=== PATIENT | male | born 1955 | race Caucasian/White ===

== ENCOUNTER 2017-02-27 10:15 | Inpatient (IN) ==
--- NOTE | 2017-02-27 12:53 | Internal Med History&Physical ---
Date of Encounter: 02/27/17 Time of Encounter: 12:31 Assessment and Plan (1) COPD exacerbation Current visit: Yes Status: Acute 61/male Known to have a COPD. Was evaluated by [facility] emergency for COPD exacerbation. Was transferred here for further follow-up. Plan: -Admitted as an inpatient: Intravenous antibiotics/intravenous steroids and close observation. -Intravenous ceftriaxone/intravenous azithromycin after blood culture. -Intravenous methylprednisolone 40 mg every 8 hourly. -Inhale bronchodilators every 4 hourly. Close observation. (2) CHF (congestive heart failure) Current visit: No Status: Acute Stress test: 01/10/2015: Gaited EF 54%. Negative for ischemia. Patient responded well to intravenous Lasix in the [facility] emergency room. We will get echocardiogram done tomorrow. We will also run the troponins. Qualifiers: Congestive heart failure type: unspecified congestive heart failure type Congestive heart failure chronicity: unspecified congestive heart failure chronicity Qualified Code(s): I50.9 - Heart failure, unspecified (3) Chest pain Current visit: Yes Status: Acute Patient has a atypical chest pain. We will and troponin. We will get echocardiogram. If troponin positive/abnormal echocardiogram: We will get cardiology on the board. Plan discussed with the patient and he is aware of the same. Qualifiers: Chest pain type: unspecified Qualified Code(s): R07.9 - Chest pain, unspecified (4) Hypertension Current visit: Yes Status: Acute Blood pressure is within normal limits. We will continue home medications. Qualifiers: Hypertension type: unspecified Qualified Code(s): I10 - Essential (primary ) hypertension (5) DVT prophylaxis Current visit: Yes Status: Acute Heparin Medical decision making: This patient has a moderate to severe risk of worsening in spite of being on appropriate antibiotics due to the underlying multiple complex comorbid conditions Internal Medicine - H&P: HPI Chief complaint: Chest pressure Admitted From: Intrahospital Transfer Plans for Post Hospital Care: Home History of present illness: PCP: Jamaica Schumacher Brief past medical history: COPD, CHF, hypertension, dyslipidemia, coronary artery disease, status post coronary artery bypass graft in 2007 History of present illness: This is a transfer patient from [facility] to [facility]. Patient was evaluated in the [facility] emergency room. This is a 61-year-old male who is known to have a COPD has a four-day history of a cough and difficulty in breathing. Patient complains that his shortness of breath was getting progressively worse and now he started having left-sided precordial chest pain which was nonradiating and localized and worsening with movement and relieved by rest. Patient denies any history of recent sickness. Squad was called by the family. There is squad placed patient on a BiPAP. Patient was transferred to [facility]. He was given intravenous steroids. Patient also received 40 mg Lasix. Patient felt much better after this initial treatment. [facility] ask for a transfer of this patient to the hospital for further management. Reason for admission: Likely COPD exacerbation for further management and will rule out ACS Family history: Noncontributory Past Med Surg Social Fam HX - Past Medical History Medical history: asthma, COPD, hypertension Psychiatric history: no psych history - Social History Smoking Status: Current some day smoker Smokeless Tobacco Status: No Alcohol use: none Drug use: none Internal Medicine - H&P: Meds Albuterol Sulfate [Ventolin Hfa] 18 gm IH PRN PRN 02/27/17 [History] Carvedilol [Coreg] 6.25 mg PO BIDWM 02/27/17 [History] Fluticasone/Salmeterol [Advair 500-50 Diskus] 1 each IH DAILY 02/27/17 [History] Tiotropium [Spiriva] 18 mcg IH 0700 02/27/17 [History] predniSONE [PredniSONE] 20 mg PO DAILY 02/27/17 [History] 3 Allergy/AdvReac Type Severity Reaction Status Date / Time No Known Allergies Allergy Unverified 01/10/15 08:36 All Systems PM: A 10-system review of systems was performed and is negative for pertinent findings except as documented above in the HPI. - Constitutional Constitutional: no chills, no fever(s), no night sweats - EENT Eyes: no change in vision, no discharge, no pain, no photophobia Ears: no ear discharge, no ear pain, no tinnitus Nose, mouth and throat: no dysphagia, no nasal discharge, no neck pain, no sore throat - Cardiovascular Cardiovascular ROS IM: chest pain, diaphoresis, dyspnea, lightheadedness, no palpitations, no syncope - Respiratory Respiratory: no cough, no dyspnea, no wheezing, no excessive phlegm production - Gastrointestinal Gastrointestinal: no abdominal pain, no diarrhea, no hematemesis, no hematochezia, no melena, no nausea, no vomiting - Musculoskeletal Musculoskeletal ROS IM: no numbness, no tingling - Integumentary Integumentary IM: no rash, no unusual bruising - Neurological Neurological ROS: no confusion, no convulsions, no focal weakness, no numbness, no tingling, no tremor(s) - Hematologic/Lymphatic Hematologic/Lymphatic: no easy bruising - Constitutional Vitals: Temp Pulse Resp BP Pulse Ox 97.4 F L 90 17 129/82 91 02/27/17 11:48 02/27/17 11:48 02/27/17 11:48 02/27/17 11:48 02/27/17 11:48 General appearance: Present: A&O X 3, pleasant, no acute distress, answers questions appropriately - Head Head exam: Present: atraumatic, normocephalic - Eye Eye exam: Present: PERRL, conjuntiva pink, sclera anicteric Pupils: Present: PERRL - Neck Neck exam general surgery: Present: supple, trachea midline. Absent: lymphadenopathy - Respiratory Respiratory exam: Present: CTAB. Absent: accessory muscle use, rales, rhonchi, wheezes - Cardiovascular Cardiovascular exam: Present: RRR, +S1, +S2. Absent: diastolic murmur, gallop, rubs, systolic murmur - GI/Abdominal GI/Abdominal exam: Present: normal bowel sounds, soft, no peritoneal signs. Absent: distended, tenderness - Extremities Exam Extremities exam: Present: warm, radial pulses palpable and symmetrical. Absent : calf tenderness, cyanotic, pedal edema - Neurological Exam Neurological exam: Present: CN II-XII intact, oriented X3, no focal deficits. Absent: pronater drift, facial droop, speech deficit - Skin Skin exam: Present: dry, intact
[2017-02-27] MEDS ORDERED: Naloxone 0.4 MG/ML INJ IVP PRN (12:54)
[2017-02-27] MEDS ORDERED: Mag Hydrox/Al Hydrox/Simeth 30 ML UDC PO PRN (12:54)
[2017-02-27] MEDS ORDERED: Acetaminophen 325 MG TABLET PO PRN (12:54)
[2017-02-27] MEDS ORDERED: Ipratropium/Albuterol Neb 3 ML IH PRN (12:59)
[2017-02-27] MEDS: *HR* Heparin 5,000 UNIT/ML VIAL SQ SCH (16:11)
[2017-02-27] MEDS: MethylPREDNISolone 40 MG/ML VIAL IVP SCH ×2 (16:11→23:23)
[2017-02-27] MEDS: Azithromycin 500 MG in D5% in Water 250 ML IVPB SCH (16:11)
[2017-02-28 01:25] LABS: Hematocrit 36.6 % (37.5-50.1); Hemoglobin 12.4 g/dL (12.9-16.9); Immature Granulocytes % 0.4 % (0-4); Lymphocytes # 0.7 K/mcL (0.6-4.6); Lymphocytes % 5.2 %; Mean Corpuscular HGB Conc 33.9 g/dL (31.6-35.5); Mean Corpuscular Hemoglobin 31.7 pg (28.0-33.3); Mean Corpuscular Volume 93.6 fL (83.0-100.0); Mean Platelet Volume 8.5 fL (9.4-12.4); Monocytes # 0.2 K/mcL (0.0-1.3); Monocytes % 1.5 %; Neutrophils # 13.2 K/mcL (1.6-8.9); Platelet Count 263 K/mcL (140-400); Red Blood Count 3.91 M/mcL (4.19-5.50); Red Cell Distribution Width 13.4 % (11.5-14.5); Segmented Neutrophils % 92.9 %
[2017-02-28 01:37] LABS: INR 1.2; Prothrombin Time 12.9 Seconds (9.4-12.1)
[2017-02-28 01:38] LABS: Alanine Aminotransferase 42 Units/L (0-55); Albumin 2.8 g/dL (3.5-5.0); Alkaline Phosphatase 64 Units/L (38-126); Aspartate Amino Transferase 20 Units/L (5-34); BUN/Creatinine Ratio 36 (6-26); Bilirubin,Total 0.9 mg/dL (0.2-1.2); Blood Urea Nitrogen 30 mg/dL (8-26); Calcium 8.5 mg/dL (8.6-10.8); Carbon Dioxide 31 mEq/L (19-29); Chloride 101 mEq/L (98-109); Chol/HDL Ratio 1.2 (0-4.9); Globulin 2.9 g/dL (2.4-3.5); Glucose 150 mg/dL (70-99); HDL Cholesterol 45 mg/dL (40-59); LDL Cholesterol,Calculated 4 mg/dL (0-99); Magnesium 1.7 mg/dL (1.6-2.6); Osmolality,Calculated 297 (280-300); Phosphorous 2.9 mg/dL (2.3-4.7); Potassium 4.3 mEq/L (3.5-4.5); Sodium 139 mEq/L (136-145); Total Protein 5.7 g/dL (6.0-8.3); Triglycerides 30 mg/dL (< 150); eGFR For African Americans > 60 (> 60); eGFR For Non-African Americans > 60 (> 60)
[2017-02-28 01:40] LABS: Cholesterol 55 mg/dL (< 200)
[2017-02-28] MEDS: *HR* Heparin 5,000 UNIT/ML VIAL SQ SCH ×2 (05:26→16:16)
[2017-02-28] MEDS: MethylPREDNISolone 40 MG/ML VIAL IVP SCH ×2 (07:59→15:20)
[2017-02-28] MEDS: cefTRIAXone 1,000 MG in Water for inj. (sterile) 10 ML IVP SCH (07:59)
[2017-02-28] MEDS: Tiotropium 18 MCG inhalation IH SCH (08:08)
[2017-02-28] MEDS: Azithromycin 500 MG in D5% in Water 250 ML IVPB SCH (15:20)
[2017-02-28] MEDS ORDERED: Albuterol 2.5 MG/3 ML NEBULIZER IH PRN (16:19)
--- NOTE | 2017-02-28 16:22 | Internal Med Progress Note ---
Date of Encounter: 02/28/17 Time of Encounter: 16:21 - Assessment and plan (1) CHF (congestive heart failure) Current Visit: Yes Status: Acute Qualifiers: Congestive heart failure type: unspecified congestive heart failure type Congestive heart failure chronicity: unspecified congestive heart failure chronicity Qualified Code(s): I50.9 - Heart failure, unspecified (2) COPD exacerbation Current Visit: Yes Status: Acute (3) Chest pain Current Visit: Yes Status: Acute Qualifiers: Chest pain type: unspecified Qualified Code(s): R07.9 - Chest pain, unspecified (4) Hypertension Current Visit: Yes Status: Acute Qualifiers: Hypertension type: unspecified Qualified Code(s): I10 - Essential (primary ) hypertension - Subjective Interval history: Admitted for CHF. Chest x-ray showed pulmonary infiltrates and BNP elevated. IV Lasix 40 twice a day started. Troponin negative. Echocardiogram ordered. Also noted to have COPD exacerbation and therefore patient is on steroids med nebs and Mucinex. Patient is also on IV Rocephin and Zithromax the chest x-ray did not show any pneumonia. CBC CMP and magnesium ordered. As noted above cortical lens are negative. - Constitutional Vitals: Temp Pulse Resp BP Pulse Ox 98.0 F 101 18 132/80 98 02/28/17 15:56 02/28/17 15:56 02/28/17 15:56 02/28/17 15:56 02/28/17 15:56 General appearance: Present: A&O X 3, pleasant, no acute distress, answers questions appropriately - Head Head exam: Present: atraumatic, normocephalic - Eye Eye exam: Present: PERRL, conjuntiva pink, sclera anicteric Pupils: Present: PERRL - Neck Neck exam general surgery: Present: supple, trachea midline. Absent: lymphadenopathy - Respiratory Respiratory exam: Present: CTAB, rhonchi, wheezes. Absent: accessory muscle use , rales - Cardiovascular Cardiovascular exam: Present: RRR, +S1, +S2. Absent: diastolic murmur, gallop, rubs, systolic murmur - GI/Abdominal GI/Abdominal exam: Present: normal bowel sounds, soft, no peritoneal signs. Absent: distended, tenderness - Extremities Exam Extremities exam: Present: warm, radial pulses palpable and symmetrical. Absent : calf tenderness, cyanotic, pedal edema - Neurological Exam Neurological exam: Present: CN II-XII intact, oriented X3, no focal deficits. Absent: pronater drift, facial droop, speech deficit - Skin Skin exam: Present: dry, intact Internal Medicine: Result - Labs CBC & Chem 7: 02/28/17 01:18 02/28/17 01:18 Labs: Short CBC 02/28/17 Range/Units 01:18 WBC 14.2 H (4.3-11.1) K/mcL Hgb 12.4 L (12.9-16.9) g/dL Hct 36.6 L (37.5-50.1) % Plt Count 263 (140-400) K/mcL Neutrophils # 13.2 H (1.6-8.9) K/mcL BMP 02/28/17 01:18 Sodium 139 Potassium 4.3 Chloride 101 Carbon Dioxide 31 H BUN 30 H Creatinine 0.84 Glucose 150 H Calcium 8.5 L Cardiac Enzymes 02/27/17 02/28/17 Range/Units 19:26 01:18 Troponin I 0.02 0.01 (0-0.03) ng/mL Liver Function 02/28/17 Range/Units 01:18 Total Bilirubin 0.9 (0.2-1.2) mg/dL AST 20 (5-34) Units/L ALT 42 (0-55) Units/L Alkaline Phosphatase 64 (38-126) Units/L Albumin 2.8 L (3.5-5.0) g/dL - ABG Interpretation ABG results: PT/INR, D-dimer PT 12.9 Seconds (9.4-12.1) H 02/28/17 01:18 Consult Discharge Plan - Plan Referrals: Paul Watts, [facility] [Primary Care Provider] -
[2017-02-28] MEDS: Furosemide 40 MG/4 ML VIAL IVP SCH (17:23)
[2017-02-28] MEDS: Ipratropium/Albuterol Neb 3 ML IH SCH ×2 (19:57→22:32)
[2017-02-28] MEDS: methylPREDNISolone 125 MG/2 ML VIAL IVP SCH (23:47)
[2017-03-01 03:03] LABS: Basophils % 0.1 %; Hemoglobin 12.8 g/dL (12.9-16.9); Immature Granulocytes % 0.8 % (0-4); Lymphocytes # 0.9 K/mcL (0.6-4.6); Mean Corpuscular HGB Conc 32.8 g/dL (31.6-35.5); Mean Corpuscular Hemoglobin 31.3 pg (28.0-33.3); Mean Corpuscular Volume 95.4 fL (83.0-100.0); Mean Platelet Volume 8.8 fL (9.4-12.4); Monocytes # 0.5 K/mcL (0.0-1.3); Monocytes % 2.7 %; Neutrophils # 16.7 K/mcL (1.6-8.9); Platelet Count 275 K/mcL (140-400); Red Blood Count 4.09 M/mcL (4.19-5.50); Red Cell Distribution Width 14.1 % (11.5-14.5); Segmented Neutrophils % 91.4 %
[2017-03-01 03:22] LABS: Alanine Aminotransferase 57 Units/L (0-55); Albumin 2.8 g/dL (3.5-5.0); Albumin/Globulin Ratio 0.9 (1.1-2.2); Alkaline Phosphatase 82 Units/L (38-126); Aspartate Amino Transferase 30 Units/L (5-34); BUN/Creatinine Ratio 40 (6-26); Bilirubin,Total 0.2 mg/dL (0.2-1.2); Blood Urea Nitrogen 38 mg/dL (8-26); Calcium 8.8 mg/dL (8.6-10.8); Carbon Dioxide 30 mEq/L (19-29); Chloride 103 mEq/L (98-109); Globulin 3.1 g/dL (2.4-3.5); Glucose 152 mg/dL (70-99); Magnesium 1.9 mg/dL (1.6-2.6); Osmolality,Calculated 304 (280-300); Potassium 4.4 mEq/L (3.5-4.5); Sodium 141 mEq/L (136-145); Total Protein 5.9 g/dL (6.0-8.3); eGFR For African Americans > 60 (> 60); eGFR For Non-African Americans > 60 (> 60)
[2017-03-01] MEDS: Ipratropium/Albuterol Neb 3 ML IH SCH ×4 (05:02→22:16)
[2017-03-01] MEDS: *HR* Heparin 5,000 UNIT/ML VIAL SQ SCH ×2 (05:17→17:22)
[2017-03-01] MEDS: methylPREDNISolone 125 MG/2 ML VIAL IVP SCH (08:48)
[2017-03-01] MEDS: cefTRIAXone 1,000 MG in Water for inj. (sterile) 10 ML IVP SCH (08:48)
[2017-03-01] MEDS: Furosemide 40 MG/4 ML VIAL IVP SCH ×2 (08:48→17:23)
[2017-03-01] MEDS: Tiotropium 18 MCG inhalation IH SCH (10:50)
--- NOTE | 2017-03-01 11:26 | Internal Med Progress Note ---
Date of Encounter: 03/01/17 Time of Encounter: 11:21 - Assessment and plan (1) CHF (congestive heart failure) Current Visit: Yes Status: Acute Qualifiers: Congestive heart failure type: unspecified congestive heart failure type Congestive heart failure chronicity: unspecified congestive heart failure chronicity Qualified Code(s): I50.9 - Heart failure, unspecified (2) COPD exacerbation Current Visit: Yes Status: Acute (3) Chest pain Current Visit: Yes Status: Acute Qualifiers: Chest pain type: unspecified Qualified Code(s): R07.9 - Chest pain, unspecified (4) Hypertension Current Visit: Yes Status: Acute Qualifiers: Hypertension type: unspecified Qualified Code(s): I10 - Essential (primary ) hypertension - Subjective Interval history: Admitted for CHF. Chest x-ray showed pulmonary infiltrates and BNP elevated. IV Lasix 40 twice a day started. Troponin negative. Echocardiogram ordered. Also noted to have COPD exacerbation and therefore patient is on steroids med nebs and Mucinex. Patient is also on IV Rocephin and Zithromax the chest x-ray did not show any pneumonia. CBC CMP and magnesium ordered. As noted above cortical lens are negative. 03/01 patient is asymptomatic now. He came in with chest pain CHF and COPD exacerbation. Breathing is improved with IV Solu-Medrol and nebulizer and I will switch him to oral steroids per his request. His echocardiogram showed an ejection fraction of only 20-25%. In 2014 he had a negative stress test and his EF at that time was 54%. We have consulted cardiology. We will make sure he is on beta kelsey and aspirin and ALMA inhibitor. Further evaluation and treatment plan per cardiology - Constitutional Vitals: Temp Pulse Resp BP Pulse Ox 97.8 F 80 16 140/88 96 03/01/17 11:05 03/01/17 11:05 03/01/17 11:05 03/01/17 11:05 03/01/17 11:05 General appearance: Present: A&O X 3, pleasant, no acute distress, answers questions appropriately - Head Head exam: Present: atraumatic, normocephalic - Eye Eye exam: Present: PERRL, conjuntiva pink, sclera anicteric Pupils: Present: PERRL - Neck Neck exam general surgery: Present: supple, trachea midline. Absent: lymphadenopathy - Respiratory Respiratory exam: Present: CTAB. Absent: accessory muscle use, rales, rhonchi, wheezes - Cardiovascular Cardiovascular exam: Present: RRR, +S1, +S2. Absent: diastolic murmur, gallop, rubs, systolic murmur - GI/Abdominal GI/Abdominal exam: Present: normal bowel sounds, soft, no peritoneal signs. Absent: distended, tenderness - Extremities Exam Extremities exam: Present: warm, radial pulses palpable and symmetrical. Absent : calf tenderness, cyanotic, pedal edema - Neurological Exam Neurological exam: Present: CN II-XII intact, oriented X3, no focal deficits. Absent: pronater drift, facial droop, speech deficit - Skin Skin exam: Present: dry, intact Internal Medicine: Result - Labs CBC & Chem 7: 03/01/17 02:37 03/01/17 02:37 Labs: Short CBC 03/01/17 Range/Units 02:37 WBC 18.3 H (4.3-11.1) K/mcL Hgb 12.8 L (12.9-16.9) g/dL Hct 39.0 (37.5-50.1) % Plt Count 275 (140-400) K/mcL Neutrophils # 16.7 H (1.6-8.9) K/mcL BMP 03/01/17 02:37 Sodium 141 Potassium 4.4 Chloride 103 Carbon Dioxide 30 H BUN 38 H Creatinine 0.94 Glucose 152 H Calcium 8.8 Liver Function 03/01/17 Range/Units 02:37 Total Bilirubin 0.2 (0.2-1.2) mg/dL AST 30 (5-34) Units/L ALT 57 H (0-55) Units/L Alkaline Phosphatase 82 (38-126) Units/L Albumin 2.8 L (3.5-5.0) g/dL - ABG Interpretation ABG results: PT/INR, D-dimer PT 12.9 Seconds (9.4-12.1) H 02/28/17 01:18 - Impressions Impressions Echocardiogram 02/27/17 12:59 Impressions: LVEF 20-25%. Severely dilated left ventricle. Severe global left ventricular systolic dysfunction. Indeterminate diastolic function. Atypical septal motion consistent with post-operative status/bundle branch block. Mildly dilated right ventricle. Mild right ventricular hypokinesis. Moderately dilated left atrium. Moderately dilated right atrium. Mild-moderate mitral regurgitation. Left Ventricular Wall Motion: Rest Echo Findings The apex, apical inferior, mid inferior, basal inferior, apical anterior, mid anterior, basal anterior, apical septal, mid inferior septal, basal inferior septal, apical lateral, mid anterior lateral, basal anterior lateral, mid anterior septal, mid inferior lateral, basal anterior septal and basal inferior lateral desai were hypokinetic. Findings: Study Quality * Technically adequate exam. ECG Findings * Sinus rhythm with BBB. Left Ventricle * LVEF 20-25%. * Severely dilated left ventricle. * Severe global left ventricular systolic dysfunction. * Indeterminate diastolic function. * Atypical septal motion consistent with post-operative status/bundle branch block. Right Ventricle * Mildly dilated right ventricle. * Mild right ventricular hypokinesis. Left Atrium * Moderately dilated left atrium. Right Atrium * Moderately dilated right atrium. Interatrial Septum * No evidence of PFO by color Doppler. Aortic Valve * Trileaflet aortic valve with normal function. * No aortic regurgitation. * No aortic stenosis. Mitral Valve * Mitral valve leaflets normal in appearance, but apically displaced. * Mild-moderate mitral regurgitation. * No mitral stenosis. Tricuspid Valve * Trace tricuspid regurgitation. * No evidence of pulmonary hypertension. Pulmonic Valve * Normal pulmonic valve structure and function. * Trace pulmonic regurgitation. Aorta * Normally sized aortic root. Pericardium * The pericardium appears normal. Pulmonary Artery * Normal visualized portions of the main pulmonary artery. IVC * The IVC is dilated. * > 50% respiratory change Consult Discharge Plan - Plan Referrals: Paul Watts, SERGIO [Primary Care Provider] -
[2017-03-01] MEDS: Azithromycin 500 MG in D5% in Water 250 ML IVPB SCH (14:35)
--- NOTE | 2017-03-01 17:07 | Cardiology Consult Note ---
<GiulianoAn J - Last Filed: 03/01/17 17:05> Date of Encounter: 03/01/17 Time of Encounter: 16:00 Assessment and Plan (1) Cardiomyopathy Current Visit: Yes Status: Acute Per cardiology: -TTE this admission with LVEF 20-25%. NO previous reports at [facility] to review. Patient denies history of cardiomyopathy. -On beta kelsey. -Euvolemic on exam. -PLan for [facility] tomorrow. -Will make NPO after midnight. -Will add mason pending cath results. -Will continue to monitor. Qualifiers: Cardiomyopathy type: unspecified Qualified Code(s): I42.9 - Cardiomyopathy , unspecified (2) Systolic congestive heart failure Current Visit: Yes Status: Acute Per cardiology: -BNP on admission 1768. -CHest x-ray with mild pulmonary edema. -On lasix 40mg IV BID. -Appears euvolmeic on exam today. -Weight today 85.1kg. -Weight October 84.7kg. -TTE with new cardiomyopathy. -CHF education given to patient. -Strict i/os, daily weights, fluid restriction. -Will switch lasix to po. -Will continue to monitor. Qualifiers: Congestive heart failure chronicity: acute Qualified Code(s): I50.21 - Acute systolic (congestive) heart failure (3) History of coronary artery bypass graft x 1 Current Visit: Yes Status: Chronic Per cardiology: -History of single vessel CABG for anomolous coronary artery. -Will obtain records Discussion w patient/family: The assessment and plan as outlined above was discussed with the patient who expressed understanding and agreement. All questions were answered. Thank you for involving us in the care of your patient. Please call with any questions. Discussed and reviewed with . History of Present Illness Consult date: 03/01/17 Requesting physician: Alba Mckee Consult reason: CHF Chief complaint: shortness of breath History of present illness: Mr. Carlos is a 61 year old male with a relevant past medical history of anomolous coronary artery s/p CABG, HTN, hyperlipidemia, previous tobacco abuse. Patient presented to [facility] with complaints of increased shortness of breath. Patient states breathing is much improved today. Patient denies chest pain or increased fatigue. Patient denies peripheral edema. Past Med Surg Social Fam HX - Past Medical History Attestation: Yes The following information was validated with the patient. Source: patient, old records reviewed Medical history: asthma, COPD, hypertension Psychiatric history: no psych history - Social History Smoking Status: Current some day smoker Smokeless Tobacco Status: No Alcohol use: none Drug use: none Medications and Allergies Albuterol Sulfate [Ventolin Hfa] 1 - 2 puff IH Q4H PRN 02/27/17 [History] Carvedilol [Coreg] 6.25 mg PO BID 02/27/17 [History] Fluticasone/Salmeterol [Advair 500-50 Diskus] 1 puff IH BID 02/27/17 [History] Tiotropium [Spiriva] 18 mcg IH DAILY 02/27/17 [History] predniSONE [PredniSONE] 40 mg PO DAILY 02/27/17 [History] Roflumilast [Daliresp] 500 mcg PO DAILY 02/28/17 [History] 3 Allergy/AdvReac Type Severity Reaction Status Date / Time No Known Allergies Allergy Unverified 01/10/15 08:36 All Systems Review: A 10-system review of systems was performed and is negative for pertinent findings except as documented above in the HPI. - Cardiovascular Cardiovascular: as per HPI, dyspnea at rest, dyspnea on exertion Physical Examination Vital Signs, Last 4 Hours Temp Pulse Resp BP Pulse Ox 03/01/17 16:35 98.0 F 91 16 134/81 97 03/01/17 15:41 18 94 General: Conversant, No Apparent Distress HEENT: Atraumatic, Normocephaly, Mucus Membranes Moist Neck: No JVD, Normal carotid pulses Cardiac: Reg Rate and Rhythm, Normal S1 and S2, No Murmur Lungs: Normal Breath Sounds, No Wheeze, Rales, Rhonchi Neuro: Alert and responsive, No focal deficits noted Abdomen: Soft, Non-Tender Skin: No rashes noted on visualized skin Musculoskeletal: No Chest Wall Tenderness Extremities: No Clubbing, No Cyanosis, No Edema, Normal Pulses Results 03/01/17 02:37 03/01/17 02:37 Lab Results Impressions Echocardiogram 02/27/17 12:59 Impressions: LVEF 20-25%. Severely dilated left ventricle. Severe global left ventricular systolic dysfunction. Indeterminate diastolic function. Atypical septal motion consistent with post-operative status/bundle branch block. Mildly dilated right ventricle. Mild right ventricular hypokinesis. Moderately dilated left atrium. Moderately dilated right atrium. Mild-moderate mitral regurgitation. Left Ventricular Wall Motion: Rest Echo Findings The apex, apical inferior, mid inferior, basal inferior, apical anterior, mid anterior, basal anterior, apical septal, mid inferior septal, basal inferior septal, apical lateral, mid anterior lateral, basal anterior lateral, mid anterior septal, mid inferior lateral, basal anterior septal and basal inferior lateral desai were hypokinetic. Findings: Study Quality * Technically adequate exam. ECG Findings * Sinus rhythm with BBB. Left Ventricle * LVEF 20-25%. * Severely dilated left ventricle. * Severe global left ventricular systolic dysfunction. * Indeterminate diastolic function. * Atypical septal motion consistent with post-operative status/bundle branch block. Right Ventricle * Mildly dilated right ventricle. * Mild right ventricular hypokinesis. Left Atrium * Moderately dilated left atrium. Right Atrium * Moderately dilated right atrium. Interatrial Septum * No evidence of PFO by color Doppler. Aortic Valve * Trileaflet aortic valve with normal function. * No aortic regurgitation. * No aortic stenosis. Mitral Valve * Mitral valve leaflets normal in appearance, but apically displaced. * Mild-moderate mitral regurgitation. * No mitral stenosis. Tricuspid Valve * Trace tricuspid regurgitation. * No evidence of pulmonary hypertension. Pulmonic Valve * Normal pulmonic valve structure and function. * Trace pulmonic regurgitation. Aorta * Normally sized aortic root. Pericardium * The pericardium appears normal. Pulmonary Artery * Normal visualized portions of the main pulmonary artery. IVC * The IVC is dilated. * > 50% respiratory change Active Medications Acetaminophen (Tylenol) 650 mg PO Q6HR PRN PRN Reason: Mild Pain (1-3) Stop: 08/29/17 12:55 Al Hydrox/Mg Hydrox/Simethicone (Maalox) 15 ml PO Q6HR PRN PRN Reason: Dyspepsia Stop: 08/29/17 12:55 Albuterol Sulfate (Proventil Neb) 2.5 mg IH Q2H PRN; Protocol PRN Reason: Shortness Of Breath/Wheezing Stop: 08/30/17 16:20 Albuterol/Ipratropium (Duoneb) 3 ml IH QIDR [facility] PRN Reason: Protocol Stop: 08/30/17 17:01 Last Admin: 03/01/17 15:38 Dose: 3 ml Aspirin (Aspirin Ec) 81 mg PO DAILY [facility] Stop: 09/01/17 09:01 Atorvastatin Calcium (Lipitor) 40 mg PO HS ZEINAB Stop: 08/31/17 21:01 Carvedilol (Coreg) 6.25 mg PO BIDWM ZEINAB PRN Reason: Protocol Stop: 08/29/17 17:01 Last Admin: 03/01/17 08:47 Dose: 6.25 mg Docusate Sodium (Colace) 100 mg PO BID PRN PRN Reason: Constipation Stop: 08/29/17 12:55 Furosemide (Lasix) 40 mg IVP BIDDIURETIC ZEINAB Stop: 08/30/17 17:01 Last Admin: 03/01/17 08:48 Dose: 40 mg Guaifenesin (Mucinex) 600 mg PO BID [facility]AB Stop: 03/07/17 09:01 Last Admin: 03/01/17 08:47 Dose: 600 mg Heparin Sodium (Porcine) (Heparin) 5,000 unit SQ Q12HR [facility]AB Stop: 08/29/17 18:01 Last Admin: 03/01/17 05:17 Dose: 5,000 unit Ceftriaxone Sodium 1,000 mg/ (Sterile Water) 10 mls @ 300 mls/hr IVP DAILY [facility]AB Stop: 08/30/17 09:01 Last Admin: 03/01/17 08:48 Dose: 300 mls/hr Azithromycin 500 mg/ Dextrose 250 mls @ 252 mls/hr IVPB Q24H [facility] Stop: 08/29/17 15:01 Last Admin: 03/01/17 14:35 Dose: 252 mls/hr Naloxone HCl (Narcan) 0.4 mg IVP Q2MIN PRN PRN Reason: Opioid Reversal Stop: 08/29/17 12:55 Prednisone (Prednisone) 40 mg PO BIDWM ZEINAB Stop: 08/31/17 17:01 Tiotropium [place] (Spiriva) 18 mcg IH 0700 [facility] Stop: 08/30/17 07:01 Last Admin: 03/01/17 10:50 Dose: Not Given - Imaging and Cardiology Chest Xray: report reviewed Echo: report reviewed - EKG Interpretation EKG results cardiology: personally reviewed (ECG with SR, left bundle branch block.), other (Telemetry reviewed with average HR previous 12 hours noted to be 82, sinus rhythm. PACs and PVCs noted.) Consult Discharge Plan - Plan Referrals: Paul Watts, [employer] [Primary Care Provider] - <Nayely Leon - Last Filed: 03/01/17 17:32> Date of Encounter: 03/01/17 - Attending Attestation I have personally performed a face to face evaluation on this patient. I have reviewed and agree with the care plan. Mr. Carlos presents with worsening SOB and newly discovered systolic heart failure. EF now 25%, previously normal on stress testing in 2014. Risk factors for CAD include HTN, HPL, male gender and former smoking. He does have a history of anomalous coronary having undergone single vessel bypass in 2006 but did not have CAD, per report. Given new heart failure and risk factors, we discussed proceeding with [facility]. The R/B/A of the procedure were discussed with the patient. He expressed understanding and agreement to proceed. Renal function is normal. Continue asa, statin, uptitrate BB as tolerated and add ACEI/ARB after cath. Continue diuresis. Assessment and Plan Discussion w patient/family: The assessment and plan as outlined above was discussed with the patient and/or family members who expressed understanding and agreement. All questions were answered. Thank you for involving us in the care of your patient. Please call with any questions. History of Present Illness History of present illness: Mr. Carlos is a 61 year old male All Systems Review: A 10-system review of systems was performed and is negative for pertinent findings except as documented above in the HPI. Physical Examination Vital Signs, Last 4 Hours Temp Pulse Resp BP Pulse Ox 03/01/17 16:35 98.0 F 91 16 134/81 97 03/01/17 15:41 18 94 Results 03/01/17 02:37 03/01/17 02:37 Lab Results 03/01/17 03/01/17 02:37 02:37 WBC 18.3 H Hgb 12.8 L Hct 39.0 Plt Count 275 Sodium 141 Potassium 4.4 Chloride 103 Carbon Dioxide 30 H BUN 38 H Creatinine 0.94 Glucose 152 H Calcium 8.8 Magnesium 1.9 Total Bilirubin 0.2 AST 30 ALT 57 H Alkaline Phosphatase 82
[2017-03-01] MEDS: predniSONE 20 MG TABLET PO SCH (17:22)
[2017-03-02 04:08] LABS: Basophils % 0.1 %; Hematocrit 38.4 % (37.5-50.1); Hemoglobin 12.6 g/dL (12.9-16.9); Immature Granulocytes % 0.7 % (0-4); Lymphocytes % 5.3 %; Mean Corpuscular HGB Conc 32.8 g/dL (31.6-35.5); Mean Corpuscular Hemoglobin 31.4 pg (28.0-33.3); Mean Corpuscular Volume 95.8 fL (83.0-100.0); Mean Platelet Volume 8.8 fL (9.4-12.4); Monocytes # 0.6 K/mcL (0.0-1.3); Monocytes % 3.4 %; Neutrophils # 16.3 K/mcL (1.6-8.9); Platelet Count 289 K/mcL (140-400); Red Blood Count 4.01 M/mcL (4.19-5.50); Red Cell Distribution Width 14.2 % (11.5-14.5); Segmented Neutrophils % 90.5 %
[2017-03-02 04:18] LABS: Alanine Aminotransferase 42 Units/L (0-55); Albumin 2.8 g/dL (3.5-5.0); Alkaline Phosphatase 74 Units/L (38-126); Aspartate Amino Transferase 16 Units/L (5-34); BUN/Creatinine Ratio 38 (6-26); Bilirubin,Total 0.2 mg/dL (0.2-1.2); Blood Urea Nitrogen 35 mg/dL (8-26); Calcium 8.6 mg/dL (8.6-10.8); Carbon Dioxide 29 mEq/L (19-29); Chloride 104 mEq/L (98-109); Globulin 2.9 g/dL (2.4-3.5); Glucose 119 mg/dL (70-99); Osmolality,Calculated 299 (280-300); Potassium 4.3 mEq/L (3.5-4.5); Sodium 140 mEq/L (136-145); Total Protein 5.7 g/dL (6.0-8.3); eGFR For African Americans > 60 (> 60); eGFR For Non-African Americans > 60 (> 60)
[2017-03-02] MEDS: Ipratropium/Albuterol Neb 3 ML IH SCH ×3 (04:32→22:47)
[2017-03-02] MEDS: *HR* Heparin 5,000 UNIT/ML VIAL SQ SCH ×2 (05:42→16:26)
[2017-03-02] MEDS: Tiotropium 18 MCG inhalation IH SCH (07:25)
[2017-03-02] MEDS: Aspirin Enteric Coated 81 MG Tablet PO SCH (08:48)
[2017-03-02] MEDS: cefTRIAXone 1,000 MG in Water for inj. (sterile) 10 ML IVP SCH (08:49)
[2017-03-02] MEDS: predniSONE 20 MG TABLET PO SCH ×2 (08:49→16:25)
--- NOTE | 2017-03-02 10:12 | Event Note ---
Date of Encounter: 03/02/17 Time of Encounter: 09:00 - Cardiology Event Note PLan for LHC for new cardiomyopathy. Risks versus benefits of LHC explained to patient and family. Patient states understanding and agreeable to proceed. Further recommendations pending LHC. updated on WBC and CABGx1, no old records for review regarding bypass graft.
[2017-03-02] MEDS: Furosemide 40 MG TABLET PO SCH (11:43)
--- NOTE | 2017-03-02 14:38 | Internal Med Progress Note ---
Date of Encounter: 03/02/17 Time of Encounter: 13:00 - Assessment and plan (1) Acute respiratory failure with hypoxia Current Visit: Yes Status: Acute Assessment and plan: Due to CHF and COPD exacerbation improving may need home O2 eval does use CPAP at bed time at home (2) Bronchitis Current Visit: Yes Status: Acute Assessment and plan: Did c/o cough with expectoration No signs of pneumonia on CXR cont empirical abx Rocephin .. d/c Azithromycin (3) COPD exacerbation Current Visit: Yes Status: Acute Assessment and plan: improving cont tapering PO steroids cont Duoneb and O2 (4) Systolic congestive heart failure Current Visit: Yes Status: Acute Assessment and plan: Improving held Lasix today due to [facility] cont BB, statin, ASA, will add ACEI in AM before he goes home Qualifiers: Congestive heart failure chronicity: acute Qualified Code(s): I50.21 - Acute systolic (congestive) heart failure (5) Hypertension Current Visit: Yes Status: Acute Assessment and plan: stable with current meds Qualifiers: Hypertension type: unspecified Qualified Code(s): I10 - Essential (primary ) hypertension (6) Cardiomyopathy Current Visit: Yes Status: Acute Assessment and plan: Mostly ischemic cardiomyopathy scheduled for [facility] today Qualifiers: Cardiomyopathy type: unspecified Qualified Code(s): I42.9 - Cardiomyopathy , unspecified (7) History of coronary artery bypass graft x 1 Current Visit: Yes Status: Chronic (8) DVT prophylaxis Current Visit: Yes Status: Acute Assessment and plan: on SQ Heparin - Subjective Interval history: Mr. Carlos is a 61 y/o M with known PMH of COPD, nocturnal home O2 dependent, systolic CHF, hypertension, dyslipidemia, coronary artery disease, status post coronary artery bypass graft in 2007 who admitted here for progressively worsening SOB, Cough with expectoration. He was in significant volume overload and COPD exacerbation with purulent bronchitis. Pt was started on aggressive IV diuresis, steroids and empirical abx. His symptoms started improving slowly. Still on 2 lit O2 NC. Denied any CP. Still has mild SOB and MCQUEEN. His 2 D Echo showed severe systolic dysfunction, show scheduled for [facility] later today - Constitutional Vitals: Temp Pulse Resp BP Pulse Ox 97.5 F L 94 17 133/84 97 03/02/17 11:43 03/02/17 11:43 03/02/17 11:43 03/02/17 11:43 03/02/17 11:43 General appearance: Present: A&O X 3, no acute distress, answers questions appropriately - Head Head exam: Present: atraumatic, normal inspection - Neck Neck exam general surgery: Present: supple - Respiratory Respiratory exam: Present: decreased breath sounds, rales (mild), wheezes (mild) . Absent: respiratory distress, rhonchi - Cardiovascular Cardiovascular exam: Present: RRR, +S1, +S2. Absent: systolic murmur, tachycardia - GI/Abdominal GI/Abdominal exam: Present: normal bowel sounds, soft. Absent: rebound, rigid, tenderness - Extremities Exam Extremities exam: Present: pedal edema (1+). Absent: calf tenderness, tenderness - Back Exam Back exam: Absent: CVA tenderness (L), CVA tenderness (R) - Neurological Exam Neurological exam: Present: alert, oriented X3 - Psychiatric Psychiatric exam: Present: normal affect, normal mood Internal Medicine: Result - Labs CBC & Chem 7: 03/02/17 03:07 03/02/17 03:07 Labs: Short CBC 03/02/17 Range/Units 03:07 WBC 18.0 H (4.3-11.1) K/mcL Hgb 12.6 L (12.9-16.9) g/dL Hct 38.4 (37.5-50.1) % Plt Count 289 (140-400) K/mcL Neutrophils # 16.3 H (1.6-8.9) K/mcL BMP 03/02/17 03:07 Sodium 140 Potassium 4.3 Chloride 104 Carbon Dioxide 29 BUN 35 H Creatinine 0.91 Glucose 119 H Calcium 8.6 Liver Function 03/02/17 Range/Units 03:07 Total Bilirubin 0.2 (0.2-1.2) mg/dL AST 16 (5-34) Units/L ALT 42 (0-55) Units/L Alkaline Phosphatase 74 (38-126) Units/L Albumin 2.8 L (3.5-5.0) g/dL - ABG Interpretation ABG results: PT/INR, D-dimer PT 12.9 Seconds (9.4-12.1) H 02/28/17 01:18 Consult Discharge Plan - Plan Referrals: Paul Watts CNP [Primary Care Provider] - 03/10/17 2:15 pm (Please follow up as schedule..)
[2017-03-02] MEDS ORDERED: *HR* Heparin 10,000 UNIT/10 ML VIAL ONE (16:51)
[2017-03-02] MEDS ORDERED: 0.9 % Sodium Chloride 1,000 ML ONE ×2 (16:52→17:38)
[2017-03-02] MEDS ORDERED: Heparin 1,000 UNITS/500 mL NS 500 ML ONE (16:52)
--- NOTE | 2017-03-02 17:14 | Pre-Sedation Evaluation ---
Pre-sedation evaluation - Pre-sedation checklist Date of procedure: 03/02/17 Procedure: [facility] Recent Vitals: Last Vital Signs Temp 97.4 F L 03/02/17 16:52 Pulse 85 03/02/17 16:52 Resp 17 03/02/17 16:52 BP 137/90 03/02/17 16:52 Pulse Ox 96 03/02/17 16:52 H&P (including ROS) documented in medical record: Yes Previous reaction to sedatives/anesthetics: No Dietary Status: NPO after Midnight Airway Assessment: Patient can open mouth completely, TMJ function normal, Micrognathia (under-bite, receding chin) absent, Neck with adequate range of motion Dentition: No loose teeth or bridges Possible difficult airway: No ASA Classification *see protocol: CLASS II-Mild systemic disease Plan of Care: Pt appropriate candidate for procedure/moderate/conscious sedation , Risks/benefits of procedure/sedation discussed w/ patient/family
[2017-03-02] MEDS ORDERED: *HR* FentaNYL (PF) 100 MCG/2 ML VIAL ONE (17:38)
[2017-03-02] MEDS ORDERED: *HR* Midazolam HCl 2 MG/2 ML VIAL ONE (17:38)
--- NOTE | 2017-03-02 18:29 | Invasive Diagnostic Lab Proc ---
Name: Hector Carlos Date of Study: 03/02/2017 Date: 1955 Ht: 70.9in Medical Record#: [id number] Age: 61 Wt: 191.80lb Gender: Male BSA: 2.07 Order #: [id number] BMI: 26.85 Physicians Procedure Physician: Bianca Burks MD, [facility] Referring MD: Referring MD: Staff Name Position Time In Lily Gonsalez RT (R) Scrub 05:24 PM ElieserTab RT (R) Monitor 05:25 PM Theresa Sarmiento RN Recreation Therapy Director 05:25 PM Jaye Higgins RN Recreation Therapy Director 05:41 PM Indications Indication Unstable Angina Procedures Performed Procedure L HRT ART/GRFT ANGIO INJECT SUPRVLVAORTAGRAM Pre-Procedure Checklist Informed consent is complete signed and on chart. H&P is on chart. ID band is on and ID verified with patient. Patient NPO for procedure The procedure was described for the patient and questions were answered. Blood Pressure: 134/84 ECG is on chart. Rhythm: Sinus Arrhythmia Plan of Care Patient will tolerate the procedure without complications. Adequate level of comfort will be maintained. Hemodynamics will remain stable Patient will recover from procedure without complications. Respiratory function will be maintained. Cardiac rhythm will remain stable. Patient temperature will be maintained. Patient and/or family have verbalized understanding of the procedure. Patient Education Chief Complaint/Reason for Test: Cardiac Cath Developmental Category: Adult (18-64 years) Developmentally Appropriate for Age: Yes Learning Barriers: None Education Needs: Procedure Education Method: Verbal Information Taught: Cardiac Cath Educational Evaluation: Able to repeat information Intravenous Access Time IV Size Location DC'd Fluid/Drip Rate Units RN 05:25 PM 22g 1" Patent On Arrival Rt Arm 0.9NaCl 25 ml/hr Jaye Higgins RN Allergies No Known Allergies Vital Signs Time BP (mmHg) HR (bpm) O2 Sat. RR (bpm) LOC 05:26 PM 134 / 84 80 97 % 16 5 = Fully awake and oriented or at pre-proc level 05:29 PM / % 5 = Fully awake and oriented or at pre-proc level 05:29 PM / % 4 = Oriented but drowsy 05:44 PM / % 4 = Oriented but drowsy 06:00 PM / % 5 = Fully awake and oriented or at pre-proc level 05:37 PM 142 / 94 76 97 % 23 05:41 PM 147 / 98 71 98 % 10 05:46 PM 137 / 98 84 91 % 14 05:51 PM 140 / 100 86 87 % 16 05:53 PM 140 / 97 90 89 % 16 05:58 PM 143 / 106 89 93 % 15 06:01 PM 143 / 102 92 95 % 17 06:07 PM 146 / 103 89 94 % 20 06:12 PM 148 / 107 90 98 % 19 Procedural Medications Time Medication Dose Units Method Given By 05:41 PM Versed 2 mg Intravenous Jaye Higgins RN 05:41 PM Fentanyl 50 mcg Intravenous Jaye Higgins RN 05:42 PM Oxygen 2 L/min nasal cannula Jaye Higgins RN 05:43 PM Lidocaine 2% 15 ml Subcutaneous Bianca Burks MD, FACC 05:52 PM Oxygen 8 L/min Oxy Mask Theresa Sarmiento RN ASA Classification: CLASS II- Mild systemic disease (i.e. well-controlled diabetes, hypertension, asthma, cigarette smoking) Grisel Score Preprocedure Postprocedure Activity 2- Moves 4 extremities sustained head lift Activity 2- Moves 4 extremities sustained head lift Circulation 2- SBP +/= 20 points of pre-anesthetic level Circulation 2- SBP +/= 20 points of pre-anesthetic level Consciousness 2- Awake and alert oriented x 3 Consciousness 2- Awake and alert oriented x 3 O2 Saturation 2- Able to maintain O2 satruation of 92% on room air O2 Saturation 2- Able to maintain O2 satruation of 92% on room air Respiratory 2- Able to deep breathe and cough well Respiratory 2- Able to deep breathe and cough well Total Score 10 Total Score 10 Contrast Agent: Isovue Diagnostic Contrast: 193 ml Total Contrast: 193 ml Fluoro Dose: 395 mGy Procedure Log Time Note Enter By 05:25 PM Lily Gonsalez RT (R) Position: Scrub Time in: 17:24 2 05:25 PM Tab Mon RT (R) Position: Monitor Time in: 17:25 05:25 PM Theresa Sarmiento RN Position: Recreation Therapy Director Time in: 17:25 05:25 PM Patient charges- Angio tray pack, Navilyst 3mm J, Pulse Oximetry and ACIST tubing and transducer 05:29 PM Pt arrived to porcelain enamel laborer 2 at 17:29 [email or web address] 05:29 PM Time: 17:29 Patient comfortable and pain free: Yes : PM Time: 17:29LOC: 5 = Fully awake and oriented or at pre-proc level : PM Case Delayed No 05:33 PM Physician arrived 17:33 05:33 PM Meet and greet completed 05:34 PM Sign in performed according to hospital policy. 05:34 PM Procedure start 17:34 :34 PM CathStat 05:34 PM ASA Class CLASS II- Mild systemic disease (i.e. well-controlled diabetes, hypertension, asthma, cigarette smoking) 05:36 PM Vitals capture started with the following parameters, Patient=Adult, Interval=5 min, Initial Ishavzcy=546 mmHg, Deflation Rate=5 mmHg, Cuff placed on Right Arm 05:36 PM Case Start 05:37 PM HR=76 bpm, FSCU=692/94 mmhg, SpO2=97.0 %, Resp=23 B/min, Comment=sr w/bbb 05:39 PM Recorded ECG: HR=78 Condition=Condition 1 05:40 PM Hair removed from procedure site in procedure lab using clippers. Bilateral groin prepped with Chloraprep by Tab Mon (R), safety strap applied then patient was draped. Skin intact. 05:40 PM Recorded ECG: HR=77 Condition=Condition 1 05:41 PM Jaye Higgins RN Position: Recreation Therapy Director Time in: 17:41 05:41 PM Time: 17:41 Versed 2 mg Intravenous Given by Jaye Higgins RN 05:41 PM Time: 17:41 Fentanyl 50 mcg Intravenous Given by Jaye Higgins RN 05:41 PM HR=71 bpm, LYTO=829/98 mmhg, SpO2=98.0 %, Resp=10 B/min 05:42 PM Time: 17:42 Oxygen on at 2 L/min per nasal cannula by Jaye Higgins RN 05:43 PM Time out performed according to hospital policy 05:43 PM Pressure channel 1 zeroed. 05:43 PM Time: 17:43 15 ml Lidocaine 2% to right groin Subcutaneous Given by Bianca Burks MD, [facility] 05:44 PM Access obtained by percutaneous puncture. 5Fr 10cm Terumo [place] sheath placed in right Femoral artery. [id number] 05:44 PM 0.035 145cm Navilyst 3mmJ wire [id number] 05:44 PM 5Fr FL 4 catheter inserted over the wire [facility] 05:44 PM Time: 17:29 Patient comfortable and pain free: Yes 05:44 PM Time: 17:29LOC: 4 = Oriented but drowsy 05:46 PM Catheter removed 05:46 PM HR=84 bpm, ROLE=876/98 mmhg, SpO2=91.0 %, Resp=14 B/min 05:47 PM 5Fr FR 4 catheter inserted over the wire [facility] 05:47 PM RCA angiography performed in multiple views. 05:47 PM Recorded Pressure: Ao, HR=87, Condition=Condition 1 (Aorta) Ao 119/95/108 05:50 PM Recorded Pressure: Ao, HR=84, Condition=Condition 1 (Aorta) Ao 112/76/92 05:51 PM HR=86 bpm, XPUV=657/100 mmhg, SpO2=87.0 %, Resp=16 B/min 05:52 PM Physician reviewing films 05:52 PM Time: 17:52 Oxygen on at 8 L/min per Oxy Mask by Theresa Sarmiento RN 05:52 PM Vitals capture stopped. 05:52 PM Vitals capture started with the following parameters, Patient=Adult, Interval=5 min, Initial Svsswwvn=960 mmHg, Deflation Rate=5 mmHg, Cuff placed on Right Arm 05:52 PM Recorded Pressure: Ao, HR=89, Condition=Condition 1 (Aorta) Ao 119/94/107 05:53 PM HR=90 bpm, MWJH=346/97 mmhg, SpO2=89.0 %, Resp=16 B/min 05:53 PM Catheter removed 05:54 PM 5Fr IM catheter inserted over the wire [id number] 05:55 PM Left CARLOTA to the LAD angio performed in multiple views. 05:56 PM Recorded Pressure: Ao, HR=90, Condition=Condition 1 (Aorta) Ao 123/100/112 05:57 PM Catheter removed 05:57 PM 5Fr Pigtail catheter inserted over the wire [facility] 05:58 PM HR=89 bpm, PEGQ=537/106 mmhg, SpO2=93.0 %, Resp=15 B/min 05:58 PM Catheter selectively placed in left ventricle [facility] 05:58 PM Pressure channel 1 zeroed. 05:59 PM Recorded Pressure: LV, SU=625, Condition=Condition 1 (Left Ventricle) LV 98/35/48 05:59 PM Bolus angiogram of left Ventricle complete: 8 ml/sec for a total of 24 mls [email or web address] 05:59 PM Recorded Pressure: LV, Ao, HR=88, Condition=Condition 1 (Left Ventricle) LV 108/44/57, (Aorta) Ao 115/61/88 05:59 PM Time: 17:44 Patient comfortable and pain free: Yes [email or web address] [id number] 06:00 PM Time: 17:44LOC: 4 = Oriented but drowsy [place] [id number] 06:00 PM Bolus angiogram of Aortic root complete: 15 ml/sec for a total of 30 mls [email or web address] 06:00 PM Physician reviewing films [place] [id number] 06:01 PM Vitals capture started with the following parameters, Patient=Adult, Interval=5 min, Initial Ixnnchgy=875 mmHg, Deflation Rate=5 mmHg, Cuff placed on Right Arm 06:01 PM Catheter removed [facility] 06:01 PM HR=92 bpm, WYME=999/102 mmhg, SpO2=95.0 %, Resp=17 B/min 06:04 PM Bolus angiogram of right Femoral complete: 4 ml/sec for a total of 7 mls [email or web address] 06:07 PM HR=89 bpm, TFHB=398/103 mmhg, SpO2=94.0 %, Resp=20 B/min 06:09 PM Arterial sheath pulled, Mynx closure device used and was Successful [id number] S/N. [email or web address] 06:11 PM Procedure completed at 18:11 [email or web address] 06:11 PM Sign out completed: Radiation Dose 395.28 mGy Fluoro Time: 6.3 Isovue 370 - 200ml contrast 193 ml given by Bianca Burks MD, [facility]. Complications: NoneCardiac Rehab Consult needed: NoConfirmed administered medications: Yes [email or web address] 06:11 PM Isovue 370 - 200ml,1 Bottle(s) used. [email or web address] 06:11 PM Post ECG Sinus Arrhythmia [email or web address] 06:12 PM Post Blood Pressure 140/97 [email or web address] 06:12 PM HR=90 bpm, LJKG=773/107 mmhg, SpO2=98.0 %, Resp=19 B/min 06:14 PM Information taught Cardiac Cath [email or web address] 06:14 PM Education needs Procedure, Plan of Care, and Disease Process [email or web address] 06:14 PM Learning barriers :Sedated [email or web address] 06:14 PM Education Methods Verbal [email or web address] 06:14 PM Education evaluation Needs further instruction [email or web address] 06:14 PM Site status No bleeding/hematoma - Rt Groin as reported by Lily Gonsalez RT (R) at 18:14 [email or web address] 06:14 PM Opsite applied [email or web address] 06:14 PM Delay to floor No [email or web address] 06:14 PM Complications: None [email or web address] 06:14 PM Fluoro Time: 6.3 2 06:14 PM Isovue 370 - 200ml contrast 193 ml given by Bianca Burks MD, [facility]. [email or web address] 06:14 PM Radiation Dose 395.28 mGy [email or web address] 06:14 PM Time: 17:59 Patient comfortable and pain free: Yes [email or web address] 06:15 PM Time: 18:00LOC: 5 = Fully awake and oriented or at pre-proc level [email or web address] 06:15 PM Vitals capture stopped. 06:16 PM Patient out of room: 18:16 [email or web address] 06:19 PM Report given to marcos PARKER Pt taken to 2A Room #37. 18:19 [email or web address] 06:21 PM Family placed in consult room. [email or web address] 06:21 PM 18:21 Post Pulses Bilateral DP & PT 2+ [email or web address] Complications Complication None None Hemodynamics Pressures Site Systolic/A Wave Diastolic/V Wave Mean AO 119 95 108 AO 112 76 92 AO 119 94 107 AO 123 100 112 LV 98 35 48 LV 108 44 57 AO 115 61 88 Post Procedure Information Blood Pressure: 140/97 mmHg Rhythm: Sinus Arrhythmia Post procedural instructions were given Closure Device Time Device Success/Fail 03/02/2017 6:09:00 PM MynxGrip Successful Site Checks Time Location Status Staff Sheath In? Note 06:14 PM Rt Groin No bleeding/hematoma Lily Gonsalez RT (R) Pulses Time Site Pre-Procedure Post-Procedure Note 03/02/2017 5:25:00 PM Bilateral DP & PT 2+ 6:21:00 PM Bilateral DP & PT 2+ Updated by Tab Mon RT (R) on 03/02/2017 6:21:36 PM Tab Mon RT electronically signed on 03/02/2017 6:22:08 PM with status of Final
[2017-03-02] MEDS ORDERED: Furosemide 40 MG/4 ML VIAL IVP ONE (18:34)
[2017-03-03 04:04] LABS: Basophils % 0.1 %; Hematocrit 41.3 % (37.5-50.1); Hemoglobin 13.3 g/dL (12.9-16.9); Immature Granulocytes % 0.6 % (0-4); Mean Corpuscular HGB Conc 32.2 g/dL (31.6-35.5); Mean Corpuscular Hemoglobin 31.4 pg (28.0-33.3); Mean Corpuscular Volume 97.6 fL (83.0-100.0); Mean Platelet Volume 8.9 fL (9.4-12.4); Monocytes # 0.8 K/mcL (0.0-1.3); Monocytes % 6.6 %; Neutrophils # 10.6 K/mcL (1.6-8.9); Platelet Count 293 K/mcL (140-400); Red Blood Count 4.23 M/mcL (4.19-5.50); Red Cell Distribution Width 14.4 % (11.5-14.5); Segmented Neutrophils % 84.7 %
[2017-03-03] MEDS: Ipratropium/Albuterol Neb 3 ML IH SCH ×3 (04:09→10:25)
[2017-03-03 04:17] LABS: Alanine Aminotransferase 40 Units/L (0-55); Albumin 2.9 g/dL (3.5-5.0); Albumin/Globulin Ratio 0.9 (1.1-2.2); Alkaline Phosphatase 83 Units/L (38-126); Aspartate Amino Transferase 17 Units/L (5-34); BUN/Creatinine Ratio 40 (6-26); Bilirubin,Total 0.5 mg/dL (0.2-1.2); Blood Urea Nitrogen 34 mg/dL (8-26); Calcium 8.9 mg/dL (8.6-10.8); Carbon Dioxide 32 mEq/L (19-29); Chloride 103 mEq/L (98-109); Globulin 3.1 g/dL (2.4-3.5); Glucose 131 mg/dL (70-99); Osmolality,Calculated 309 (280-300); Potassium 4.2 mEq/L (3.5-4.5); Sodium 145 mEq/L (136-145); eGFR For African Americans > 60 (> 60); eGFR For Non-African Americans > 60 (> 60)
[2017-03-03] MEDS: *HR* Heparin 5,000 UNIT/ML VIAL SQ SCH (06:03)
[2017-03-03] MEDS: predniSONE 20 MG TABLET PO SCH (08:09)
[2017-03-03] MEDS: Furosemide 40 MG TABLET PO SCH (08:09)
[2017-03-03] MEDS: Aspirin Enteric Coated 81 MG Tablet PO SCH (08:09)
[2017-03-03] MEDS: cefTRIAXone 1,000 MG in Water for inj. (sterile) 10 ML IVP SCH (08:09)
--- NOTE | 2017-03-03 10:10 | Cardiology Progress Note ---
Date of Encounter: 03/03/17 Time of Encounter: 08:00 Assessment and Plan (1) Cardiomyopathy Current Visit: Yes Status: Acute Per cardiology: -Presented with CHF. -TTE this admission with LVEF 20-25%. -On beta kelsey and mason inhibitor. -Euvolemic on exam. -[facility] yesterday with coronary arteries angiographically free of disease. Anomolous circumflex noted. -Recommend continue beta kelsey and mason inhibitor. -Cardiology will sign off. -Patient wishes to follow with [facility], previously followed with . -Patient needs to be seen within one week due to CHF. Qualifiers: Cardiomyopathy type: unspecified Qualified Code(s): I42.9 - Cardiomyopathy , unspecified (2) Systolic congestive heart failure Current Visit: Yes Status: Acute Per cardiology: -BNP on admission 1768. -CHest x-ray with mild pulmonary edema. -Appears euvolmeic on exam today. -TTE with new cardiomyopathy. -ON lasix po -CHF education given to patient. -Patient will follow with primary ripsaw grader. Qualifiers: Congestive heart failure chronicity: acute Qualified Code(s): I50.21 - Acute systolic (congestive) heart failure (3) History of coronary artery bypass graft x 1 Current Visit: Yes Status: Chronic Per cardiology: -History of single vessel CABG for anomolous coronary artery. -[facility] yesterday with coronary arteries angiographically free of disease. Anomolous circumflex noted. [place] to LAD occluded. -Recommend outpatient cardiac CTA. -Pateint will follow with primary ripsaw grader. Discussion w patient/family: The assessment and plan as outlined above was discussed with the patient who expressed understanding and agreement. All questions were answered. Thank you for involving us in the care of your patient. Please call with any questions. Discussed and reviewed with . Subjective Principal diagnosis: CHF Interval history: Patient states he feels well this morning. Denies complaints. Patient states he has been able to walk without pain. Objective Vital Signs, Last 4 Hours Temp Pulse Resp BP Pulse Ox 03/03/17 07:41 98.3 F 85 18 132/93 96 General: Conversant, No Apparent Distress HEENT: Atraumatic, Normocephaly, Mucus Membranes Moist Neck: No JVD, Normal carotid pulses Cardiac: Reg Rate and Rhythm, Normal S1 and S2, No Murmur Lungs: Normal Breath Sounds, No Wheeze, Rales, Rhonchi Neuro: Alert and responsive, No focal deficits noted Abdomen: Soft, Non-Tender Skin: No rashes noted on visualized skin, Other (Right groin access site without hematoma or ecchymosis. ) Musculoskeletal: No Chest Wall Tenderness Extremities: No Clubbing, No Cyanosis, No Edema, Normal Pulses Results 03/03/17 03:06 03/03/17 03:06 Lab Results Active Medications Acetaminophen (Tylenol) 650 mg PO Q6HR PRN PRN Reason: Mild Pain (1-3) Stop: 08/29/17 12:55 Al Hydrox/Mg Hydrox/Simethicone (Maalox) 15 ml PO Q6HR PRN PRN Reason: Dyspepsia Stop: 08/29/17 12:55 Albuterol Sulfate (Proventil Neb) 2.5 mg IH Q2H PRN; Protocol PRN Reason: Shortness Of Breath/Wheezing Stop: 08/30/17 16:20 Albuterol/Ipratropium (Duoneb) 3 ml IH QIDR ZEINAB PRN Reason: Protocol Stop: 08/30/17 17:01 Last Admin: 03/03/17 06:00 Dose: Not Given Aspirin (Aspirin Ec) 81 mg PO DAILY [facility] Stop: 09/01/17 09:01 Last Admin: 03/03/17 08:09 Dose: 81 mg Atorvastatin Calcium (Lipitor) 40 mg PO HS [facility] Stop: 08/31/17 21:01 Last Admin: 03/02/17 20:14 Dose: 40 mg Carvedilol (Coreg) 6.25 mg PO BIDWM ZEINAB PRN Reason: Protocol Stop: 08/29/17 17:01 Last Admin: 03/03/17 08:09 Dose: 6.25 mg Docusate Sodium (Colace) 100 mg PO BID PRN PRN Reason: Constipation Stop: 08/29/17 12:55 Furosemide (Lasix) 40 mg PO BIDDIURETIC [facility] Stop: 09/01/17 08:01 Last Admin: 03/03/17 08:09 Dose: 40 mg Guaifenesin (Mucinex) 600 mg PO BID [facility] Stop: 03/07/17 09:01 Last Admin: 03/03/17 08:09 Dose: 600 mg Heparin Sodium (Porcine) (Heparin) 5,000 unit SQ Q12HR ZEINAB Stop: 08/29/17 18:01 Last Admin: 03/03/17 06:03 Dose: 5,000 unit Ceftriaxone Sodium 1,000 mg/ (Sterile Water) 10 mls @ 300 mls/hr IVP DAILY ZEINAB Stop: 08/30/17 09:01 Last Admin: 03/03/17 08:09 Dose: 300 mls/hr Lisinopril (Zestril) 2.5 mg PO DAILY EZINAB PRN Reason: Protocol Stop: 09/02/17 09:01 Last Admin: 03/03/17 08:10 Dose: 2.5 mg Naloxone HCl (Narcan) 0.4 mg IVP Q2MIN PRN PRN Reason: Opioid Reversal Stop: 08/29/17 12:55 Prednisone (Prednisone) 40 mg PO BIDWM [facility] Stop: 08/31/17 17:01 Last Admin: 03/03/17 08:09 Dose: 40 mg Laboratory Tests 03/02/17 03/03/17 03/03/17 03:07 03:06 03:06 WBC 18.0 H 12.5 H Hgb 12.6 L 13.3 Creatinine 0.84 - Imaging and Cardiology Chest Xray: report reviewed Echo: report reviewed Cardiac cath: report reviewed - EKG Interpretation EKG results cardiology: other (Telemetry reviewed with average HR previous 12 hours noted to be 80, sinus rhythm. PVCs and PACs noted.) Consult Discharge Plan - Plan Referrals: Paul Watts, SERGIO [Primary Care Provider] - 03/10/17 2:15 pm (Please follow up as schedule..)
[2017-03-03 11:13] VITALS: BP 135/76
[2017-03-03] MEDS ORDERED: FLUARIX QUAD 2017-18 36MOS UP/PF 0.5 ML SYRINGE IM ONE (14:57)
--- NOTE | 2017-03-03 14:58 | Discharge Summary ---
Date of Encounter: 03/03/17 Time of Encounter: 14:51 - Discharge Diagnosis (1) Acute respiratory failure with hypoxia Priority: Primary Status: Acute (2) Bronchitis Priority: Primary Status: Acute (3) COPD exacerbation Priority: Primary Status: Acute (4) Systolic congestive heart failure Priority: Primary Status: Acute Qualifiers: Congestive heart failure chronicity: acute Qualified Code(s): I50.21 - Acute systolic (congestive) heart failure (5) Hypertension Priority: Secondary Status: Acute Qualifiers: Hypertension type: unspecified Qualified Code(s): I10 - Essential (primary ) hypertension (6) Cardiomyopathy Priority: Secondary Status: Acute Qualifiers: Cardiomyopathy type: unspecified Qualified Code(s): I42.9 - Cardiomyopathy , unspecified (7) History of coronary artery bypass graft x 1 Priority: Secondary Status: Chronic (8) DVT prophylaxis Priority: Secondary Status: Acute - Discharge Medications Home Medications: Albuterol Sulfate [Ventolin Hfa] 1 - 2 puff IH Q4H PRN 02/27/17 [History] Carvedilol [Coreg] 6.25 mg PO BID 02/27/17 [History] Fluticasone/Salmeterol [Advair 500-50 Diskus] 1 puff IH BID 02/27/17 [History] Tiotropium [Spiriva] 18 mcg IH DAILY 02/27/17 [History] Roflumilast [Daliresp] 500 mcg PO DAILY 02/28/17 [History] Aspirin Enteric Coated [Aspirin EC] 81 mg PO DAILY #30 tablet. 03/03/17 [Rx] Cephalexin [Keflex] 500 mg PO TID #9 capsule 03/03/17 [Rx] Furosemide [Lasix] 20 mg PO BID #60 tablet 03/03/17 [Rx] Lisinopril [Zestril] 5 mg PO DAILY #30 tablet 03/03/17 [Rx] predniSONE [PredniSONE] 40 mg PO DAILY #10 tablet 03/03/17 [Rx] Allergies/Adverse Reactions: 3 Allergy/AdvReac Type Severity Reaction Status Date / Time No Known Allergies Allergy Unverified 01/10/15 08:36 Procedures/tests Complete & Pending: Procedures Performed prior 72 hours Category Date Time Status CL Cardiac Catheterization [CL] Routine Crusher Feeder 03/02/17 10:10 Completed Date of admission: 02/27/17 13:22 Primary care physician: Paul Schumacher Consults: 03/01/17 11:18 Consult to Cardiology [CONS] Routine Comment: Consulting Provider: Cardiology An Reason for Consult: CHF Time Notified: 11:19 Call Completed: Yes - Patient Status Disposition: Home, Self-Care Condition: Good Overall status at discharge: patient is back to baseline - Discharge Instructions Follow Up With: Paul Watts, TACK PICKER [Primary Care Provider] - 03/10/17 2:15 pm (Please follow up as schedule..) Reynaldo Shell [Non-Partnered Physician] - Additional Instructions: Please f/u with your regular senior architect Dr. Shell in 1 week - Diet and Activity Activity: increase activity as tolerated Diet: low salt diet Hospital course: Mr. Carlos is a 61 y/o M with known PMH of COPD, nocturnal home O2 dependent, systolic CHF, hypertension, dyslipidemia, coronary artery disease, status post coronary artery bypass graft in 2007 who admitted here for progressively worsening SOB, Cough with expectoration. He was in significant volume overload and COPD exacerbation with purulent bronchitis. Pt was started on aggressive IV diuresis, steroids and empirical abx. His symptoms started improving slowly. His 2 D Echo came back as severe LV systolic dysfunction with LVEF 20-25%, so pt did go for C y/d which showed coronary arteries angiographically free of disease. Anomolous circumflex arises from Rt coronary cusp s/p CABG 0 of 1 grafts patent. Severe LV dysfunction LVEF 20%. Pt is comfortably breathing on RA now, denied any CP. His ambulating SpO2 92 on RA , does not require any O2 to go home. Recommend to f/u with Tank Cleaning Supervisor Dr. Shell from [facility] in one week. Also sent him home on Lasix, coreg, Lisinopril. - Time Spent with Patient Total time spent providing and/or coordinating discharge services: - Constitutional Vitals: Temp Pulse Resp BP Pulse Ox 98.4 F 84 15 135/76 97 03/03/17 11:09 03/03/17 11:09 03/03/17 11:09 03/03/17 11:09 03/03/17 14:48 General appearance: Present: A&O X 3, no acute distress, answers questions appropriately - Head Head exam: Present: atraumatic, normal inspection - Respiratory Respiratory exam: Present: decreased breath sounds, wheezes (mild). Absent: rales, respiratory distress, rhonchi - Cardiovascular Cardiovascular exam: Present: RRR, +S1, +S2. Absent: systolic murmur, tachycardia - GI/Abdominal GI/Abdominal exam: Present: soft. Absent: rebound, rigid, tenderness - Extremities Exam Extremities exam: Absent: calf tenderness, pedal edema, tenderness - Back Exam Back exam: Absent: CVA tenderness (L), CVA tenderness (R) - Neurological Exam Neurological exam: Present: alert, oriented X3 - Psychiatric Psychiatric exam: Present: normal affect, normal mood
[2017-03-04] MEDS ORDERED: predniSONE 20 MG TABLET PO SCH (09:00)
== END 2017-03-03 15:56 | disposition home or self-care (01) | DRG 286 ==
LOC: 2ANU → SUATTDRO 13:22
PROVIDERS: ADMIT Internal Medicine; ATTEND Family Medicine